=== PATIENT | female | born 1990 | race Caucasian/White ===

== ENCOUNTER 2018-07-17 17:04 | Emergency (ER) | payer OTHER ==
[~2018-07-17] VITALS: Ht 157.5 cm; Wt 91.0 kg
[~2018-07-17 17:04] MED LIST: AMOXICILLIN500 MG PO; Lisinopril; NOHOMEMEDS; PROMETHAZINE HC25 M1 PO; VICODIN 5-3001 EACH PO; ZOFRAN ODT8 MG PO
[2018-07-17 17:33] VITALS: BP 138/109
== END 2018-07-17 18:35 | disposition left against medical advice (07) ==
LOC: EME 17:04
DX: R68.89 Other general symptoms and signs (principal); Z53.21 Procedure and treatment not carried out due to patient leaving prior to being seen by health care provider